=== PATIENT | female | born 1980 | race Caucasian/White ===

== ENCOUNTER 2022-04-18 12:55 | Outpatient (REF) | payer SELFPAY ==
[2022-04-19 07:43] LABS: ~Hepatitis B Surface Antibody NONREACTIVE (Nonreactive)
[2022-04-20 23:47] LABS: TS Negative Control Passed; TS Panel A 0; TS Panel B 0; TS Positive Control Passed; TSpotTB Negative (Negative)
== END 2022-04-18 12:56 | disposition home or self-care (01) ==
LOC: HO.LNP 12:55
PROVIDERS: Visit Provider Internal Medicine
DX: Z02.1 Encounter for pre-employment examination (principal); Z11.1 Encounter for screening for respiratory tuberculosis
CPT/HCPCS: 86481; 86706; 86787

== ENCOUNTER 2023-03-19 09:21 | Emergency (ER) | payer OTHER, SELFPAY ==
[2023-03-19 09:36] VITALS: BP 130/90; PULSE 64; RESP 18; TEMP 36.6; O2SAT 98; BMI 21.0
--- NOTE | 2023-03-19 10:45 | ED_ITS ---
HPI - Eye Problem General Chief complaint: Eye Problems Stated complaint: left eye hurts to open? Time Seen by Provider: 03/19/23 09:47 Source: patient and RN notes reviewed Mode of arrival: ambulatory Limitations: no limitations History of Present Illness HPI Narrative: This is a 43-year-old female presenting to the emergency department for evaluation of left eye pain since yesterday. Patient states that she started to developed left eye irritation, believes that there is something underneath her left eyelid. She removed her contact lens as she was not sure if this was causing her left eye to be more irritated. No fevers or chills. No other complaints or concerns at this time. MD chief complaint: eye pain Location: left eye Eye Symptoms: pain Place: home Mechanism: none If Pain, Quality: aching Associated symptoms: none Treatments Prior to Arrival: none Related Data Patient tetanus UTD: No Allergies Allergy/AdvReac Type Severity Reaction Status Date / Time No Known Allergies Allergy Verified 03/19/23 09:35 Review of Systems Review of Systems: Constitutional: No Weight loss, No Fever, No Chills ENT/Mouth: No Ear Pain, No Nasal Congestion, No Sinus Pain, No Hoarseness, No sore throat, No Rhinorrhea, No Swallowing Difficulty Cardiovascular: No Chest Pain, No SOB Respiratory: No Cough, No Sputum, No Wheezing Gastrointestinal: No Nausea, No Vomiting, No Diarrhea, No Constipation, No Abdominal pain Genitourinary: No Dysuria, No Urinary Frequency, No Hematuria, No Urinary Incontinence/retention, No Urgency, No Flank Pain Musculoskeletal: No joint pain, No Myalgias, No Joint Swelling Skin: No Skin Lesions, No rash Neuro: No Weakness, No Numbness, No Paresthesias Yes all other systems are reviewed and are negative Constitutional: Constitutional: Reports as per [facility] Social History Social History Advance Directives: Yes Advance Directives Information Provided: Yes Advance Directives on File: No Physical Exam Vital Signs: Vital Signs: Last Vital Signs Temp 97.8 F 03/19/23 09:36 Pulse 64 03/19/23 09:36 Resp 18 03/19/23 09:36 BP 130/90 H 03/19/23 09:36 Pulse Ox 98 03/19/23 09:36 O2 Del Method Room Air 03/19/23 09:36 BMI result Body Mass Index 21.0 Const: General: cooperative, comfortable and no acute distress Orientation/consciousness: patient oriented x3 Limitations: no limitations HEENT: Head: Yes normal to inspection, Yes normocephalic and Yes atraumatic Ears: hearing grossly normal bilaterally General nose exam: Normal external nose present Face and sinus: Yes normal facial exam Mouth: Normal oral and palatal mucosa present, oropharynx normal and moist mucous membranes Throat: Yes posterior oropharynx normal Eyes: General: appearance normal, both eyes and all related structures Eyelids: Yes eyelids normal Conjunctivae: conjunctivae normal Sclerae: sclerae normal Pupils: Equal, round and reactive pupils present EOM: EOMs intact bilaterally Neck: Neck: Yes normal visual inspection, Yes full ROM and Yes no lymphade nopathy Lymphatic: no lymphadenopathy noted Chest: Chest palpation & inspection: normal inspection of the chest Resp: Effort & Inspection: normal respiratory effort and able to speak in complete sentences Auscultation: clear to auscultation bilaterally, no crackles, no rales, no rhonchi and no wheezes Cardio: Rate: regular rate Rhythm: regular rhythm Heart sounds: S1 normal heart sound present and S2 normal heart sound present GI: Inspection: Yes normal to inspection Skin: General skin exam: no rashes or lesions noted Trauma: no lacerations or abrasions Wounds: no wounds Neuro: General: patient oriented x3 and moves all extremities Cranial nerves: Yes Equal, round and reactive pupils present Extrem: General: Yes normal to inspection Right upper extremity: normal to inspection Left upper extremity: normal to inspection Right lower extremity: normal to inspection Left lower extremity: normal to inspection Medical Decision Making Medical Decision Making MDM Narrative: 43 y/o F presenting to the ER for evaluation of L eye pain. Conjunctiva clear, Visual acuity intact. VSS. I advised pt that we needed to do a full examination with IOP and fluoroscein stain and patient left prior to full examination. Differential Diagnosis Differential Diagnoses: The differential diagnosis associated with the presentation includes corneal abrasion, iritis, conjunctivitis, foreign body Radiology Impression Discussion of test interpretation with radiology: I have reviewed the radiologist's reading. External Record Review External record reviewed: Inpatient record, Office record, Outpatient record, Prior outpatient labs, Prior outpatient radiology, Primary care record and Outside ED record Discharge Plan Discharge Clinical Impression: Acute left eye pain Patient Disposition: Left Against Medical Advice Stand Alone Forms: Against Medical Advice Discharge Date/Time: 03/19/23 11:30
== END 2023-03-19 11:30 | disposition left against medical advice (07) ==
PROVIDERS: Emergency Provider Emergency Medicine; PCP Pediatrics
DX: H57.12 Ocular pain, left eye (principal)
CPT/HCPCS: 99282